=== PATIENT | male | born 1965 | race Caucasian/White ===

== ENCOUNTER → 2021-03-26 | Outpatient (CLI) | payer OTHER | LOC: CAT 09:37 | PROVIDERS: ATTEND Internal Medicine Cardiovascular Disease | DX: Z13.6 Encounter for screening for cardiovascular disorders (principal) ==

== ENCOUNTER → 2021-03-26 | Outpatient (CLI) | payer OTHER | LOC: SJCVCIMAG 06:57 | PROVIDERS: ATTEND Internal Medicine Cardiovascular Disease | DX: I77.810 Thoracic aortic ectasia (principal); Z87.891 Personal history of nicotine dependence ==